=== PATIENT | female | born 1975 | race Hispanic/Latino ===

== ENCOUNTER 2016-07-30 16:06 | Emergency (ER) | payer SELFPAY | END 2016-07-30 16:51 | disposition home or self-care (01) | LOC: NAV ERS 16:06 | DX: J10.1 Influenza due to other identified influenza virus with other respiratory manifestations (principal); E11.9 Type 2 diabetes mellitus without complications; Z79.899 Other long term (current) drug therapy | CPT/HCPCS: 99283 ==